=== PATIENT | female | born 1955 | race Caucasian/White ===

== ENCOUNTER 2023-08-30 00:54 | Day surgery (SDC) | payer MEDICARE, OTHER, SELFPAY ==
[2023-07-26 14:51] VITALS: BMI 34.7
--- NOTE | 2023-08-28 11:43 | SUR.PREOP ---
Patient called regarding upcoming procedure. Reviewed preop instructions, new appointment times, and procedure prep.
[2023-08-29 09:11] VITALS: BMI 34.7
--- NOTE | 2023-08-29 14:52 | PM.HPGS ---
History of Present Illness History of Present Illness Consent: Risks, benefits, and alternatives have been discussed and questions answered. Patient agrees to proceed with procedure. Chief complaint: neoplasm screening Narrative: Tatyana Rios is a 67 year old female who was referred for colon cancer screening. Review of Systems Review of Systems: All systems reviewed & are unremarkable except as noted in HPI and below PMFSH Past Medical History Medical History Dyslipidemia HTN (hypertension) Pacemaker Sinus node dysfunction with pacemaker Vitamin D deficiency Surgical History Surgical History Hx of appendectomy S/P cardiac pacemaker procedure Family History Family History Sibling Acute myocardial infarction Leukemia Father Cerebrovascular accident Mother No problems noted. Social History Social History Smoking status: Never smoker Alcohol intake: never Alcohol use details: rarely Substance use: never Substance use type: does not use Lack of Transportation: No Lack of Food: Never True Current Housing: I Have Housing Concerned About Future Housing: No Difficulty Paying Gas/Electric Bills: No Difficulty Paying for Meds: No Currently Unemployed: No Education: High School Diploma/GED Difficulty w/ Childcare or Family Care: No Living arrangements: with family Occupation/Education: retired Gender identity (if verbalized by the patient): Female Spiritual care concerns: No Meds Home Medications and Allergies Home Medications Medication Instructions Recorded Confirmed Type Bone Fortified 1 tab-cap BYMOUTH DAILY 06/08/23 08/29/23 History cholecalciferol (vitamin D3) 25 50 mcg PO DAILY 06/08/23 08/29/23 History mcg (1,000 unit) capsule aspirin 81 mg capsule 81 mg PO DAILY 07/26/23 08/29/23 History rosuvastatin 10 mg tablet 10 mg PO DAILY 07/26/23 08/29/23 History lisinopril 20 mg tablet 30 mg PO DAILY #135 tabs 08/17/23 08/29/23 Rx Allergies Allergy/AdvReac Type Severity Reaction Status Date / Time No Known Allergies Allergy Verified 08/30/23 06:25 Exam Const: General: alert Orientation/consciousness: patient oriented x3 Resp: Auscultation: clear to auscultation bilaterally Cardio: Rhythm: regular rhythm GI: GI Palp: Yes Soft to palpation and No Tenderness to palpation present (GI) Neuro: General: patient oriented x3 Assessment and Plan Assessment and plan (1) Screening for colon cancer: Code(s): Z12.11 - Encounter for screening for malignant neoplasm of colon Status: Acute Assessment and Plan: Colonoscopy with possible biopsy or polypectomy or cautery or injection of substances.
[2023-08-30 06:26] VITALS: BP 139/89; PULSE 86; RESP 19; TEMP 36.4; O2SAT 97
[2023-08-30] MEDS: LACTATED RINGERS 1,000 ML 150 ML IV CONT (06:34)
--- NOTE | 2023-08-30 07:24 | WPDANESEPPF ---
Anes - Initial Pre Proc Eval Procedure: Operation Date: 08/30/23 07:30 Proposed Procedures p Screening Colonoscopy - Ga Cortez MD Date/Time: 08/30/23 07:24 Surgeon: Ga Cortez MD Pre Op Diagnosis: neoplasm screening Patient Data Age: 67 Gender: F Height: 1.57 m Weight: 84 kg Last Vital Signs Temp 97.6 F 08/30/23 06:26 Pulse 86 08/30/23 06:26 Resp 19 08/30/23 06:26 BP 139/89 08/30/23 06:26 Pulse Ox 97 08/30/23 06:26 O2 Del Method Room Air 08/30/23 06:26 Allergies Allergy/AdvReac Type Severity Reaction Status Date / Time No Known Allergies Allergy Verified 08/30/23 06:25 Home Medications Medication Instructions Recorded Confirmed Type Bone Fortified 1 tab-cap BYMOUTH DAILY 06/08/23 08/29/23 History cholecalciferol (vitamin D3) 25 50 mcg PO DAILY 06/08/23 08/29/23 History mcg (1,000 unit) capsule aspirin 81 mg capsule 81 mg PO DAILY 07/26/23 08/29/23 History rosuvastatin 10 mg tablet 10 mg PO DAILY 07/26/23 08/29/23 History lisinopril 20 mg tablet 30 mg PO DAILY #135 tabs 08/17/23 08/29/23 Rx Patient hx anesthesia problems: none Family hx anesthesia problems: none Results Review: All pre-operative results and documents have been reviewed as part of the pre-operative evaluation. [facility] Past Medical History Medical History Dyslipidemia HTN (hypertension) Pacemaker Sinus node dysfunction with pacemaker Vitamin D deficiency Surgical History Surgical History Hx of appendectomy S/P cardiac pacemaker procedure Family History Family History Sibling Acute myocardial infarction Leukemia Father Cerebrovascular accident Mother No problems noted. Social History Social History Smoking status: Never smoker Alcohol intake: never Alcohol use details: rarely Substance use: never Substance use type: does not use Lack of Transportation: No Lack of Food: Never True Current Housing: I Have Housing Concerned About Future Housing: No Difficulty Paying Gas/Electric Bills: No Difficulty Paying for Meds: No Currently Unemployed: No Education: High School Diploma/GED Difficulty w/ Childcare or Family Care: No Living arrangements: with family Occupation/Education: retired Gender identity (if verbalized by the patient): Female Spiritual care concerns: No Anes - Eval Final PreProcedure Day of Procedure 08/30/23 07:24 Patient weight: obese Heart: regular rate and rhythm Lungs: clear to auscultation Airway: Mallampati scale class II Neurological: alert and oriented Last oral intake: >/= 8 hours ASA classification: III Emergent: no Anesthetic plan: proceed Anesthesia type and monitoring: general GIVS and standard monitoring Results Review: All pre-operative results and documents have been reviewed as part of the pre-operative evaluation. Informed Consent: The patient's anesthetic plan and its attendant risks and benefits were discussed with the patient/family/POA. Questions were solicited and answers provided to the satisfaction of the patient/family/POA.
[2023-08-30 07:49] VITALS: BP 112/59; PULSE 91; RESP 19; O2SAT 97
[2023-08-30 07:59] VITALS: BP 124/54; PULSE 76; RESP 19; O2SAT 97
[2023-08-30 08:09] VITALS: BP 129/78; PULSE 70; RESP 24; O2SAT 99
== END 2023-08-30 08:14 | disposition home or self-care (01) ==
PROVIDERS: PCP Physician Assistant Medical; Visit Provider Internal Medicine Gastroenterology
PROC: 0DJD8ZZ Inspection of Lower Intestinal Tract, Via Natural or Artificial Opening Endoscopic (ICD-10-PCS; CPT 45378; principal; 2023-08-30 07:30)
DX: Z12.11 Encounter for screening for malignant neoplasm of colon (principal); D12.3 Benign neoplasm of transverse colon; D12.2 Benign neoplasm of ascending colon; I10 Essential (primary) hypertension; E78.5 Hyperlipidemia, unspecified; E55.9 Vitamin D deficiency, unspecified; Z79.82 Long term (current) use of aspirin; Z95.0 Presence of cardiac pacemaker; E66.9 Obesity, unspecified; Z68.33 Body mass index [BMI] 33.0-33.9, adult
CPT/HCPCS: 45380; 45385; 45381; 88305; J2704; J7120